=== PATIENT | female | born 1995 | race Two or more races ===

== ENCOUNTER 2025-04-16 17:19 | Emergency (ER) | payer MEDICAID ==
[~2025-04-16] VITALS: Ht 162.6 cm; Wt 60.0 kg
[2025-04-16 17:42] VITALS: O2SAT 100
[2025-04-16] MEDS ORDERED: AMOX1TAB16 MT (22:14)
[2025-04-16] MEDS ORDERED: METR-167 MT (22:14)
[2025-04-16] MEDS ORDERED: IBUP-2030 MT (22:14)
[2025-04-16 23:01] VITALS: BP 101/56; PULSE 69; RESP 15; TEMP 36.8; O2SAT 99
== END 2025-04-16 23:03 | disposition home or self-care (01) ==
LOC: ER 17:39
DX: N76.0 Acute vaginitis (principal); N75.0 Cyst of Bartholin's gland; B96.89 Other specified bacterial agents as the cause of diseases classified elsewhere; K08.89 Other specified disorders of teeth and supporting structures
CPT/HCPCS: 99284